=== PATIENT | female | born 1960 | race Caucasian/White ===

== ENCOUNTER 2016-11-28 07:48 | Emergency (ER) | payer BC ==
[2016-11-28 08:07] VITALS: BP 151/81
--- NOTE | 2016-11-28 09:05 | UC ---
Throat Pain/Nasal Silvio HPI - HPI Summary HPI Summary: SINUS CONGESTION AND PAIN X >10 DAYS. - History of Current Complaint Chief Complaint: UCRespiratory Stated Complaint: SINUSES Time Seen by Provider: 11/28/16 08:47 Hx Obtained From: Patient Hx Last Menstrual Period: 10 yrs ?: No Onset/Duration: Gradual Onset, Lasting Days - 10+, Still Present, Worse Since - LAST COUPLE OF DAYS Severity: Moderate Associated Signs & Symptoms: Positive: Sinus Discomfort, Nasal Discharge. Negative: Dysphagia, Drooling, Wheezing, Hoarseness, Fever, Vomiting, Rash - Allergies/Home Medications Allergies/Adverse Reactions: Allergies Allergy/AdvReac Type Severity Reaction Status Date / Time Cefaclor [From [facility]] Allergy Hives Verified 11/28/16 08:01 Home Medications: Home Medications Pseudoephedrine HCl [Sudafed 12 Hour] 120 mg PO ONCE 11/28/16 [History Confirmed 11/28/16] PMH/Surg Hx/FS Hx/Imm Hx GI/ History Of: Reports: Gastroesophageal Reflux - Surgical History Surgical History: Yes Surgery Procedure, Year, and Place: 2014--CHOLECYSTECTOMY - Family History Known Family History: Positive: None Negative: Cardiac Disease, Hypertension, Diabetes - Social History Lives: With Family Alcohol Use: Occasionally Substance Use Type: None Smoking Status (MU): Never Smoked Tobacco Review of Systems Constitutional: Fever Skin: Negative Eyes: Negative ENT: Dental Pain, Sore Throat - IN THE MORNINGS, Nasal Discharge 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, 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 Negative: Discharge ENT: Positive: Hearing grossly normal, Pharynx normal, Nasal congestion, Nasal drainage, TMs normal. Negative: Tonsillar swelling, Tonsillar exudate, Trismus , Muffled/hoarse voice Dental Exam: Normal Neck: Positive: Supple, Nontender, Enlarged Nodes @ - PRE-AURICULAR ON LEFT ONLY Respiratory: Positive: Lungs clear, Normal breath sounds, No respiratory distress, No accessory muscle use Cardiovascular: Positive: RRR, No Murmur Musculoskeletal Exam: Normal Neurological Exam: Normal Neurological: Positive: Alert, Muscle Tone Normal Psychological: Positive: Age Appropriate Behavior Skin Exam: Normal Throat Pain/Nasal Course/Dx - Differential Dx/Diagnosis Differential Diagnosis/HQI/PQRI: Pharyngitis, Sinusitis, URI Provider Diagnoses: SINUSITIS Discharge - Discharge Plan Condition: Stable Disposition: HOME Prescriptions: Amoxicillin/Clavulanate TAB* [Augmentin TAB 875*] 875 mg PO BID #20 tab Patient Education Materials: Sinusitis (ED) Referrals: Gibson Murphy MD [Primary Care Provider] - If Needed Additional Instructions: TRY USING THE NETTI POT IN THE MORNINGS DISCUSSED. YOU MUST ALWAYS USE CLEAN WATER. REMEMBER, POSTURE IS AN IMPORTANT FACTOR IN SINUS DRAINAGE. MOVE YOUR NECK, BREATHE. AUGMENTIN: Augmentin is a mixture of amoxicillin and clavulanate. Amoxicillin is a member of the penicillin family. It covers the germs likely to cause ear, bronchial, and urinary infections better than plain penicillin. The addition of clavulanate allows it to cover staph infections of the skin, as well as resistant cases of ear and sinus infections. Your physician has chosen Augmentin for you because of the special nature of your situation. Augmentin is best taken with meals. Nausea after taking the medication is rare, but can occur. Diarrhea can occur, particularly in small children. Vaginal yeast infections, and oral thrush in infants are also common. Contact your physician if these problems occur. Allergy to penicillins is common. If you have had an allergic reaction to any drug of the penicillin family, you should never take any other penicillin. Notify your doctor at once if you develop hives, shortness of breath, swelling, or faintness. ANY TIME YOU TAKE AN ANTIBIOTIC, IT IS IMPORTANT TO REPLENISH THE BODY'S BALANCE OF "GOOD" BACTERIA BY EATING HIGH QUALITY CULTURED FOOD SUCH YOGURT, SAURKRAUT OR RIGOBERTO CHI AND/OR TAKING A PROBIOTIC SUPPLEMENT.
== END 2016-11-28 09:14 | disposition home or self-care (01) ==
LOC: UCCORT 07:48
DX: J32.9 Chronic sinusitis, unspecified (principal); R22.0 Localized swelling, mass and lump, head; Z88.1 Allergy status to other antibiotic agents
CPT/HCPCS: 99212; G0463

== ENCOUNTER 2017-07-09 08:34 | Emergency (ER) | payer BC ==
--- NOTE | 2017-07-09 08:48 | UC ---
Ear Complaint HPI - HPI Summary HPI Summary: 57 YEAR OLD FEMALE PRESENTS WITH COMPLAINS OF RIGHT EAR PAIN. - History of Current Complaint Chief Complaint: UCEar Stated Complaint: EAR PAIN Time Seen by Provider: 07/09/17 08:46 Hx Obtained From: Patient Hx Last Menstrual Period: years ?: No Severity Initially: Moderate Severity Currently: Moderate Pain Scale Used: 0-10 Numeric - 6 Aggravating Factors: Nothing Alleviating Factors: Nothing - Allergies/Home Medications Allergies/Adverse Reactions: Allergies Allergy/AdvReac Type Severity Reaction Status Date / Time Cefaclor [From [facility]] Allergy Hives Verified 07/09/17 08:39 Home Medications: Home Medications Acetaminophen [Eql Acetaminophen Extra] 1,000 mg PO ONCE PRN 07/09/17 [History Confirmed 07/09/17] PMH/Surg Hx/FS Hx/Imm Hx Previously Healthy: Yes - Surgical History Surgical History: Yes Surgery Procedure, Year, and Place: 2014--CHOLECYSTECTOMY - Family History Known Family History: Positive: None Negative: Cardiac Disease, Hypertension, Diabetes - Social History Alcohol Use: Occasionally Substance Use Type: None Smoking Status (MU): Never Smoked Tobacco Review of Systems Constitutional: Negative Skin: Negative Eyes: Negative ENT: Ear Ache Respiratory: Negative Cardiovascular: Negative Gastrointestinal: Negative Genitourinary: Negative Motor: Negative Neurovascular: Negative Musculoskeletal: Negative Neurological: Negative Psychological: Negative All Other Systems Reviewed And Are Negative: Yes Physical Exam Triage Information Reviewed: Yes Vital Signs: Initial Vital Signs Temp 36.6 C 07/09/17 08:41 Pulse 82 07/09/17 08:41 Resp 16 07/09/17 08:41 BP 137/89 07/09/17 08:41 Pulse Ox 99 07/09/17 08:41 Eye Exam: Normal ENT: Positive: Other: - RIGHT OTITIS EXTERNA Dental Exam: Normal Neck exam: Normal Neck: Positive: 1 Respiratory Exam: Normal Cardiovascular Exam: Normal Abdominal Exam: Normal Musculoskeletal Exam: Normal Neurological Exam: Normal Psychological Exam: Normal Skin Exam: Normal Ear Complaint Course/Dx - Differential Dx/Diagnosis Provider Diagnoses: RIGHT OTITIS EXTERNA Discharge - Discharge Plan Condition: Stable Disposition: HOME Prescriptions: Neomyc/Polym/HC 1% OTIC SUSP* [Cortisporin Otic Susp 1%*] 4 drop RIGHT EAR QID # 1 btl Patient Education Materials: Otitis Externa (ED) Referrals: Gibson Murphy MD [Primary Care Provider] - If Needed
[2017-07-09 08:53] VITALS: BP 137/89
== END 2017-07-09 09:05 | disposition home or self-care (01) ==
LOC: UCCORT 08:34
DX: H60.91 Unspecified otitis externa, right ear (principal); Z90.49 Acquired absence of other specified parts of digestive tract; Z88.1 Allergy status to other antibiotic agents
CPT/HCPCS: 99212; G0463

== ENCOUNTER 2019-10-13 09:32 | Emergency (ER) | payer BC ==
--- OUTSIDE RECORDS SUMMARY | 2019-10-13 10:06 | XMS REPORT | Summary of Care ---
:1960 Author Organization [facility] Address [address] [address] Care Team Providers Name Role Phone Gibson Murphy MD Primary Care Provider Reason for Visit Reason Comments Follow Up 2 wk f/u left wrist. Patient states she thinks the splint worked. Patient states that her wrist feels better, but there is still some pain. Patient can bend and twist the wrist with no aggravation. Encounter Details Date Type Department Care Team Description 09/27/2019 Office Visit [facility] - Flex Osuna MD Closed displaced [place] [address] [facility] fracture of styloid [address] [facility] [address] process [place] [address] [place] [address] with routine healing, [place] [address] subsequent encounter [phone] (Primary Dx) Allergies Active Allergy Reactions Severity Noted Date Comments Cefaclor Monohydrate Hives 09/04/2017 documented as of this encounter (statuses as of 09/28/2019) Medications Medication Sig Dispensed Refills Start Date End Date Status pantoprazole (PROTONIX) Take 20 mg by 0 Active 20 MG Oral Tab EC mouth DAILY. Multiple Take by mouth. 0 Active Vitamins-Minerals (DAILY MULTIVITAMIN PO) Calcium Citrate-Vitamin Take by mouth. 0 Active D (CALCIUM + D PO) Aspirin 81 MG Oral Tab Take 81 mg by 0 Active mouth. sertraline (ZOLOFT) 25 Take 25 mg by 0 Active MG Oral Tab mouth DAILY. ibuprofen (MOTRIN) 200 Take 400 mg by 0 Active MG Oral Tab mouth EVERY SIX HOURS NEEDED for Pain. documented as of this encounter (statuses as of 09/28/2019) Active Problems Problem Noted Date Chronic pain of right ankle 09/04/2017 documented as of this encounter (statuses as of 09/28/2019) Social History Tobacco Use Types Packs/Day Years Used Date Never Smoker Smokeless Tobacco: Never Used Alcohol Use Drinks/Week oz/Week Comments Yes 3 Standard drinks or equivalent 3.0 Sex Assigned at Date Recorded Not on file Job Start Date Occupation Industry Not on file Not on file Not on file Travel History Travel Start Travel End No recent travel history available. documented as of this encounter Last Filed Vital Signs Vital Sign Reading Time Taken Comments Blood Pressure 155/94 09/27/2019 3:07 PM EDT Pulse 74 09/27/2019 3:07 PM EDT Temperature - - Respiratory Rate - - Oxygen Saturation - - Inhaled Oxygen Concentration - - Weight 81.6 kg (180 lb) 09/27/2019 3:07 PM EDT Height 165.1 cm (5' 5") 09/27/2019 3:07 PM EDT Body Mass Index 29.95 09/27/2019 3:07 PM EDT documented in this encounter Progress Notes Flex Osuna MD - 09/27/2019 3:15 PM EDT Name: Alessia Olmos : 1960 Date of Service: 09/27/2019 Chief Complaint Patient presents with Follow Up 2 wk f/u left wrist. Patient states she thinks the splint worked. Patient states that her wrist feels better, but there is still some pain. Patient can bend and twist the wrist with no aggravation. History of Present Illness: Alessia Olmos is a 59-y.o. female. The above is noted. Patient is in today for a follow-up of left wrist injury. Previously seen by Ifeoma Bagley on 2018. Patient has a diagnosis of a closed nondisplaced fracture of the ulnar styloid. Based she is in minimal discomfort. Physical Examination: Well-developed well-nourished female in minimal discomfort at rest. Examination of left wrist reveals no discomfort on palpation of her ulnar styloid or radial styloid patient has dorsiflexion 15 degrees palmar flexion 15 degrees radial deviation 15 degrees ulnar deviation 15 degrees. BP (!) 155/94 | Pulse 74 | Ht 5' 5" (1.651 m) | Wt 180 lb (81.6 kg) | BMI 29.95 kg/m X-rays: Of left wrist reveal evidence at the ulnar styloid fracture has healed Impression: That is post ulnar styloid fracturehealed Plan: Is doing well she no longer needs to continue to wear her brace and plan is to follow-up on PRN basis. All questions were answered. There are no Patient Instructions on file for this visit. Author: Flex Osuna MD 09/27/2019 15:14 documented in this encounter Plan of Treatment Health Maintenance Due Date Last Done Comments PAP SMEAR 1960 DEPRESSION SCREENING 1971 HIV SCREENING 1974 DIABETES SCREENING 1977 LIPID DISORDER SCREENING 1977 HEPATITIS C SCREENING 1999 MAMMOGRAM (SCREENING) 1999 COLONOSCOPY SCREENING 2009 ZOSTER IMMUNIZATION SERIES (1 of 2) 2009 INFLUENZA VACCINE (#1) 2019 HPV IMMUNIZATION SERIES Aged Out No longer eligible based on patient's age to complete this topic MENINGOCOCCAL VACCINE IMM Aged Out No longer eligible based on patient's age to complete this topic PNEUMOCOCCAL 0-64 YRS Aged Out No longer eligible based on patient's age to complete this topic documented as of this encounter Results Not on filedocumented in this encounter Visit Diagnoses Diagnosis Closed displaced fracture of styloid process of left ulna with routine healing, subsequent encounter - Primary documented in this encounter Insurance Payer Benefit Plan / Subscriber ID Effective Dates Phone Address Type Group [employer] xxxxxxxxxxxx 2017-Present [employer] documented as of this encounter
--- OUTSIDE RECORDS SUMMARY | 2019-10-13 10:06 | XMS REPORT | Summary of Care ---
:1960 Author Organization [facility] Address [address] [address] Care Team Providers Name Role Phone Gibson Murphy MD Primary Care Provider Reason for Visit Reason Comments New Patient Left wrist pain. Patient was working on her flower bed and thinks she fell forward and landed on her wrist wrong and it just started bothering her on 08-30-19 and has gotten worse. Encounter Details Date Type Department Care Team Description 09/03/2019 Office Visit [facility] - Ifeoma Bagley, Wrist pain , acute, [place] RPA-C left (Primary Dx) [address] [facility] [address] [place], [place] [id number] [place] [address] [phone] Allergies Active Allergy Reactions Severity Noted Date Comments Cefaclor Monohydrate Hives 09/04/2017 documented as of this encounter (statuses as of 09/03/2019) Medications Medication Sig Dispensed Refills Start Date [...] as of this encounter (statuses as of 09/03/2019) Active Problems Problem Noted Date Chronic pain of right ankle 09/04/2017 documented as of this encounter (statuses as of 09/03/2019) Social History Tobacco Use Types Packs/Day Years [...] Sign Reading Time Taken Comments Blood Pressure 156/97 09/03/2019 9:26 AM EDT Pulse 69 09/03/2019 9:26 AM EDT Temperature - - Respiratory Rate - - Oxygen Saturation - - Inhaled Oxygen Concentration - - Weight 81.6 kg (180 lb) 09/03/2019 9:26 AM EDT Height 165.1 cm (5' 5") 09/03/2019 9:26 AM EDT Body Mass Index 29.95 09/03/2019 9:26 AM EDT documented in this encounter Progress Notes Ifeoma Bagley RPA-C - 09/03/2019 9:30 AM EDT PATIENT: Alessia Olmos : 1960 DATE OF SERVICE: 09/03/2019 Chief Complaint Patient presents with New Patient Left wrist pain. Patient was working on her flower bed and thinks she fell forward and landed on her wrist wrong and it just started bothering her on 08-30-19 and has gotten worse. SUBJECTIVE: Alessia Olmos is a 59-y.o. female who presents with left wrist pain. Onset of symptoms was 08/30/19 when she was gardening and fell forward. Landing on the left non dominant wrist. Pain did not start right away. The pain is moderate. Pain worsens with movement, and some relief by rest. There is not associated numbness, tingling in the left fingers. She has been using ice and taking ibuprofen with minimal relief. Past Medical History: Diagnosis Date Acid reflux Anxiety Family History Problem Relation Age of Onset Hypertension Mother Heart Mother Arthritis Mother Arthritis Father Arthritis-Rheumatoid Brother Current Outpatient Medications Medication Sig Aspirin 81 MG Oral Tab Take 81 mg by mouth. Calcium Citrate-Vitamin D (CALCIUM + D PO) Take by mouth. ibuprofen (MOTRIN) 200 MG Oral Tab Take 400 mg by mouth EVERY SIX HOURS NEEDED for Pain. Multiple Vitamins-Minerals (DAILY MULTIVITAMIN PO) Take by mouth. pantoprazole (PROTONIX) 20 MG Oral Tab EC Take 20 mg by mouth DAILY. sertraline (ZOLOFT) 25 MG Oral Tab Take 25 mg by mouth DAILY. No current facility-administered medications for this visit. Allergies Allergen Reactions Ceclor [Cefaclor Monohydrate] Hives Social History Socioeconomic History Marital status: Spouse name: Not on file Number of children: Not on file Years of education: Not on file Highest education level: Not on file Occupational History Not on file Social Needs Financial resource strain: Not on file Food insecurity: Worry: Not on file Inability: Not on file Transportation needs: Medical: Not on file Non-medical: Not on file Tobacco Use Smoking status: Never Smoker Smokeless tobacco: Never Used Substance and Sexual Activity Alcohol use: Yes Alcohol/week: 3.0 standard drinks Types: 3 Standard drinks or equivalent per week Drug use: Not on file Sexual activity: Not on file Lifestyle Physical activity: Days per week: Not on file Minutes per session: Not on file Stress: Not on file Relationships Social connections: Talks on phone: Not on file Gets together: Not on file Attends congregational service: Not on file Active member of club or organization: Not on file Attends meetings of clubs or organizations: Not on file Relationship status: Not on file Intimate partner violence: Fear of current or ex partner: Not on file Emotionally abused: Not on file Physically abused: Not on file Forced sexual activity: Not on file Other Topics Concern Not on file Social History Narrative Not on file REVIEW OF SYSTEMS: All remaining review of systems was negative except for as noted in the history of present illness/subjective. OBJECTIVE: Ht 5' 5" (1.651 m) | Wt 180 lb (81.6 kg) | BMI 29.95 kg/m Right wrist Skin: Intact Swelling: absent. Joint deformity: absent. Wrist range of motion: normal flexion. normal extension. normal rotation. normal pronation. normal supination. Finger range of motion: normal flexion. normal extension. Grasp strength is full. Tinel sign: absent. Phalen's sign: negative. Maximum tenderness to palpation is present at: None Left Wrist Skin: Intact Swelling: Present ulnar wrist . Joint deformity: absent. Wrist range of motion: decreased flexion. decreased extension. decreased rotation. decreased pronation. decreased supination. Finger range of motion: normal flexion. normal extension. Tinel sign: absent. Phalen's sign: negative. Maximum tenderness to palpation is present at: Ulnar wrist over the ulnar styloid and ecu tendon. Imaging: question non displaced ulnar styloid fx. ASSESSMENT: left wrist pain. PLAN: 1. Wrist Splint. 2. Medications: ibuprofen ([id number]). 3. Follow up: Return in 10 day(s) for an xray . Author: DIO Dexter 09/03/2019 09:27 documented in this encounter Plan of Treatment Date Type Specialty Care Team Description 09/13/2019 Office Visit [facility] Ifeoma Bagley RPA-C [address] [place], [place] [id number] Health Maintenance Due Date Last Done Comments [...] filedocumented in this encounter Visit Diagnoses Diagnosis Wrist pain, acute, left - Primary documented in this encounter Insurance Payer Benefit Plan / Subscriber ID Effective Dates Phone Address Type Group [employer] xxxxxxxxxxxx 2017-Present [employer] documented as of this encounter
--- OUTSIDE RECORDS SUMMARY | 2019-10-13 10:06 | XMS REPORT | Summary of Care ---
:1960 Author Organization [facility] Address [address] [address] Care Team Providers Name Role Phone Gibson Murphy MD Primary Care Provider Reason for Visit Reason Comments Follow Up Non displaced ulnar styloid fx, left wrist. Patient is doing well. Encounter Details Date Type Department Care Team Description 09/13/2019 Office Visit [facility] - Ifeoma Bagley, Closed nondisplaced [place] RPA-C fracture of styloid [address] [facility] process of left ulna [address] with routine healing, [place] [address] [place] [address] subsequent encounter [phone] (Primary Dx) Allergies Active Allergy Reactions Severity Noted Date Comments Cefaclor Monohydrate Hives 09/04/2017 documented as of this encounter (statuses as of 09/13/2019) Medications Medication Sig Dispensed Refills Start Date [...] as of this encounter (statuses as of 09/13/2019) Active Problems Problem Noted Date Chronic pain of right ankle 09/04/2017 documented as of this encounter (statuses as of 09/13/2019) Social History Tobacco Use Types Packs/Day Years [...] Sign Reading Time Taken Comments Blood Pressure 141/89 09/13/2019 2:59 PM EDT Pulse 80 09/13/2019 2:59 PM EDT Temperature - - Respiratory Rate - - Oxygen Saturation - - Inhaled Oxygen Concentration - - Weight 81.6 kg (180 lb) 09/13/2019 2:59 PM EDT Height 165.1 cm (5' 5") 09/13/2019 2:59 PM EDT Body Mass Index 29.95 09/13/2019 2:59 PM EDT documented in this encounter Progress Notes Ifeoma Bagley RPA-C - 09/13/2019 3:30 PM EDT PATIENT: Alessia Olmos : 1960 DATE OF SERVICE: 09/13/2019 Chief Complaint Patient presents with Follow Up Non displaced ulnar styloid fx, left wrist. Patient is doing well. HISTORY OF PRESENT ILLNESS: Alessia Olmos is a 59-y.o. female who returns for a follow up for left distal ulnar styloid fx . Patient notes overall doing well with decent pain control. Denies numbness/tingling of distal extremity. PHYSICAL EXAMINATION: BP 141/89 Pulse 80 Ht 5' 5" (1.651 m) Wt 180 lb (81.6 kg) BMI 29.95 kg/m2 Minimal tenderness over the ulnar styloid. Nv intact to the left upper extremity RADIOLOGIC DATA: Xrays were reviewed and reveal Non displaced ulnar styloid fx. 1 cortises . ASSESSMENT: ICD-9-CM ICD-10-CM 1. Closed nondisplaced fracture of styloid process of left ulna with routine healing, subsequent encounter V54.12 S52.615D XR WRIST MIN 3 VIEWS LEFT ( STANDARD) PLAN: continue splint. Patient will follow up here in 2 week(s) for an xray . Work: Working . Author: DIO Dexter 09/13/2019 15:18 documented in this encounter Plan of Treatment Date Type Specialty Care Team Description 09/27/2019 Office Visit Orthopedics Ifeoma Bagley RPA-C [address] [place] [address] [phone] Name Type Priority Associated Diagnoses Date/Time XR WRIST MIN 3 Imaging Routine Closed nondisplaced 09/13/2019 3:12 PM EDT VIEWS LEFT fracture of styloid (STANDARD) process of left ulna with routine healing, subsequent encounter Name Type Priority Associated Diagnoses Order Schedule XR WRIST MIN 3 VIEWS Imaging Routine Closed nondisplaced Expected: 2018, LEFT (STANDARD) fracture of styloid Expires: 09/12/2020 process of left ulna with routine healing, subsequent encounter Health Maintenance Due Date Last Done Comments [...] in this encounter Visit Diagnoses Diagnosis Closed nondisplaced fracture of styloid process of left ulna with routine healing, subsequent encounter - Primary documented in this encounter Insurance Payer Benefit Plan / Subscriber ID Effective Dates Phone Address Type Group [employer] xxxxxxxxxxxx 2017-Present [employer] documented as of this encounter
[2019-10-13 11:03] VITALS: BP 146/84
--- NOTE | 2019-10-13 11:14 | UC ---
Back Pain HPI - HPI Summary HPI Summary: 59yo with onset of acute back pain x 2 days ago when she was wiping a table, against a background of having grumbling back pain with radiation to the left leg for about 6 weeks. Began chiropractic treatment x 1-2 weeks ago with some relief, and had xrays done which were reported as normal. Had a bout of sciatic pain about 6 or 7 years ago, which resolved with time. - History of Current Complaint Chief Complaint: UCBackPain Stated Complaint: BACK PAIN Time Seen by Provider: 10/13/19 11:04 Hx Obtained From: Patient Hx Last Menstrual Period: years Onset/Duration: Sudden Onset, Gradual Onset, Lasting Weeks - 5-6, Worse Since - past 2 days with increased pain. Timing: Constant Severity Initially: Moderate Severity Currently: Moderate Pain Intensity: 8 Back Pain: Is Discrete @ - left upper buttock and low back, Radiates To - left leg Aggravating Factor(s): Movement, Lifting, Bending, Walking Alleviating Factor(s): Rest, Position - lying flat on her back Associated Signs And Symptoms: Positive: Negative. Negative: Abdominal Pain, Bladder Incontinence, Bowel Incontinence - Risk Factors AAA Risk Factors: Negative TAD Risk Factors: Negative Cauda Equina Risk Factors: Negative Epidural Abscess Risk Factors: Negative - Allergies/Home Medications Allergies/Adverse Reactions: Allergies Allergy/AdvReac Type Severity Reaction Status Date / Time cefaclor [From [facility]] Allergy Hives Verified 10/13/19 10:54 Home Medications: Home Medications Ibuprofen TAB* [Advil TAB*] 200 mg PO Q6H PRN 10/13/19 [History Confirmed ] PMH/Surg Hx/FS Hx/Imm Hx Previously Healthy: Yes GI/ History: Gastroesophageal Reflux - Surgical History Surgical History: Yes Surgery Procedure, Year, and Place: 2014--CHOLECYSTECTOMY - Family History Known Family History: Positive: Other - father post hip fracture, hx of CA lung. 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 Alcohol Use: Occasionally Substance Use Type: None Smoking Status (MU): Never Smoked Tobacco Review of Systems All Other Systems Reviewed And Are Negative: Yes Constitutional: Positive: Negative Skin: Positive: Negative Eyes: Positive: Negative ENT: Positive: Negative Respiratory: Positive: Negative. Negative: Cough Cardiovascular: Negative: Chest Pain Gastrointestinal: Positive: Negative Genitourinary: Positive: Negative Motor: Positive: Decreased ROM Neurovascular: Positive: Negative Musculoskeletal: Positive: Arthralgia Neurological: Positive: Negative Psychological: Positive: Negative Is Patient Immunocompromised?: No Physical Exam Triage Information Reviewed: Yes Appearance: Well-Appearing, Pain Distress - mild to moderate with movement. Vital Signs: Initial Vital Signs Temp 97.7 F 10/13/19 10:56 Pulse 70 10/13/19 10:56 Resp 16 10/13/19 10:56 BP 146/84 10/13/19 10:56 Pulse Ox 99 10/13/19 10:56 Eye Exam: Normal ENT: Positive: Normal ENT inspection Neck: Positive: Supple, Nontender, No Lymphadenopathy Respiratory: Positive: Lungs clear, Normal breath sounds Cardiovascular: Positive: RRR, No Murmur Abdomen Description: Negative: CVA Tenderness (R), CVA Tenderness (L) Musculoskeletal: Positive: Strength Intact, ROM Limited @ - lumbar spine with FF to 40 degrees, normal extension. + paraspinal muscle spasm. SLR on the left to 90 degrees without pain. DTR's symmetrical 1-2+ Neurological Exam: Normal Neurological: Positive: Alert, Muscle Tone Normal Psychological Exam: Normal Skin Exam: Normal Back Pain Course/Dx - Course Course Of Treatment: Discussed sciatic pain, chiropractic treatment. She has responded in the past to muscle relaxants, Discussed use of naproen as nsaid. She tolerates nsaid's without increase in gi symptoms. - Differential Dx/Diagnosis Differential Diagnosis/HQI/PQRI: Herniated Disc, Strain, Sprain, Other - sciatica Provider Diagnosis: Left-sided low back pain with sciatica Discharge ED - Sign-Out/Discharge Documenting (check all that apply): Patient Departure All imaging exams completed and their final reports reviewed: No Studies - Discharge Plan Condition: Stable Disposition: HOME Prescriptions: Cyclobenzaprine TAB* [Flexeril 10 MG TAB*] 10 mg PO BID PRN #30 tab PRN Reason: Spasms - Back Naproxen [Naproxen 500 mg tab] 500 mg PO BID #30 tablet. Patient Education Materials: Sciatica (ED) Forms: *Work Release Referrals: Linsey Rivera DO [Primary Care Provider] - Additional Instructions: Use naproxen in place of ibuprofen (longer acting pain control). Off work for the next 2 days, and follow up with your chiropracter as discussed. use a muscle relaxant for decrease of spasm. - Billing Disposition and Condition Condition: STABLE Disposition: Home
== END 2019-10-13 11:39 | disposition home or self-care (01) ==
LOC: UCCORT 09:32
DX: M54.42 Lumbago with sciatica, left side (principal); M62.830 Muscle spasm of back; Z88.8 Allergy status to other drugs, medicaments and biological substances
CPT/HCPCS: 99212; G0463